=== PATIENT | male | born 1940 | race African-American/Black ===

== ENCOUNTER 2017-06-27 09:47 | Outpatient (CLI) | payer MEDICARE, OTHER | END 2017-06-27 23:59 | disposition home or self-care (01) | LOC: CARD 09:47 | PROVIDERS: ATTEND Internal Medicine Cardiovascular Disease | DX: R42 Dizziness and giddiness (principal) | CPT/HCPCS: 93880-TC ==

== ENCOUNTER 2017-07-10 09:35 | Outpatient (CLI) | payer MEDICARE, OTHER ==
[2017-07-10] MEDS ORDERED: IV NS 0.9% 250 ML IV ONE (09:56)
[2017-07-10] MEDS ORDERED: IOHEXOL-350 100 ML VIAL IV ONE (09:56)
[2017-07-10] MEDS ORDERED: CT SWABBABLE VALVE TRANS SET 1 EA INFUS.SET MC ONE (09:56)
[2017-07-10 10:27] LABS: CALCIUM, SERUM 8.5 mg/dL (8.5-10.1); CARBON DIOXIDE 29 mmol/L (21-32); CHLORIDE 106 mmol/L (98-107); GLUCOSE 97 mg/dL (74-106); POTASSIUM 4.1 mmol/L (3.5-5.1); SODIUM SERUM 143 mmol/L (136-145); UREA NITROGEN, BLOOD 22 mg/dL (7-18)
== END 2017-07-10 23:59 | disposition home or self-care (01) ==
LOC: CT 09:35
PROVIDERS: ATTEND Internal Medicine Cardiovascular Disease
DX: I65.21 Occlusion and stenosis of right carotid artery (principal)
CPT/HCPCS: 36415; 70498; 80048; J7050; Q9967

== ENCOUNTER 2019-05-30 10:59 | Inpatient (IN) | payer MEDICARE, OTHER ==
[~2019-05-30] VITALS: Ht 167.6 cm; Wt 89.8 kg
--- NOTE | 2019-05-30 11:13 | NUR ---
CALLED NURSING SUP FOR TELE BED.
--- NOTE | 2019-05-30 11:20 | NUR ---
BIB Family From MD office "[facility] up and down xcouple days. "+SOB, PT AWAKE, ALERT, PT ON MONITOR, MD AT BEDSIDE FOR EVAL
[2019-05-30] MEDS ORDERED: DILTIAZEM HCL 25 MG IV ONE (11:26)
--- NOTE | 2019-05-30 11:28 | NUR ---
PAGED [facility].
[2019-05-30 11:30] LABS: BASOPHILS % (AUTO) 0.1 % (0.0-2.0); EOSINOPHILS % (AUTO) 0.1 % (0.0-6.0); HEMATOCRIT 37 % (39-51); HEMOGLOBIN 12.3 g/dL (13.5-17.5); LYMPHOCYTES # (AUTO) 0.6 /CMM (0.8-4.8); MEAN CORPUSCULAR HGB CONC 33 g/dl (31.0-36.0); MEAN CORPUSCULAR VOLUME 94 fL (80-96); MONOCYTES # (AUTO) 0.4 /CMM (0.1-1.30); MONOCYTES % (AUTO) 5.4 % (2.0-12.0); NEUTROPHILS # (AUTO) 6.2 /CMM (1.8-8.9); NEUTROPHILS % (AUTO) 86.4 % (43.0-81.0); PLATELET COUNT (AUTO) 145 /CMM (150-450); RED BLOOD CELL COUNT(AUTO) 3.97 MIL/uL (4.5-6.0); WHITE BLOOD COUNT (AUTO) 7.2 K/uL (4.3-11.0)
[2019-05-30] MEDS ORDERED: DILTIAZEM HCL 25 MG IV IV ONE (11:30)
[2019-05-30 11:37] LABS: CALCIUM, SERUM 8.8 mg/dL (8.5-10.1); CARBON DIOXIDE 28 mmol/L (21-32); CHLORIDE 107 mmol/L (98-107); CREATININE 1.2 mg/dL (0.6-1.3); GLUCOSE 118 mg/dL (74-106); POTASSIUM 4.4 mmol/L (3.5-5.1); SODIUM SERUM 143 mmol/L (136-145); UREA NITROGEN, BLOOD 16 mg/dL (7-18)
[2019-05-30 11:50] LABS: ALANINE AMINOTRANSFERASE 48 U/L (12-78); ALBUMIN 3.4 g/dL (3.4-5.0); ALKALINE PHOSPHATASE 84 U/L (46-116); ASPARTATE AMINOTRANSFERASE 27 U/L (15-37); B-TYPE NATRIURETIC PEPTIDE 2247 PG/ML (0-125); BILIRUBIN,DIRECT 0.6 mg/dL (0.0-0.2); BILIRUBIN,TOTAL 3.1 mg/dL (0.2-1.0); TOTAL PROTEIN, SERUM 7.2 g/dL (6.4-8.2)
[2019-05-30] MEDS ORDERED: DOXA4TAB3 PO (11:59)
[2019-05-30] MEDS ORDERED: DUTA0.5C PO (11:59)
[2019-05-30] MEDS ORDERED: OMEG1CAP55 PO (11:59)
[2019-05-30] MEDS ORDERED: DIGO125T20 PO (11:59)
[2019-05-30] MEDS ORDERED: LOSA25TA27 PO (11:59)
[2019-05-30] MEDS ORDERED: ROSU10TA2 PO (11:59)
[2019-05-30] MEDS ORDERED: ASPI-1169 PO (11:59)
--- NOTE | 2019-05-30 12:14 | NUR ---
NURSING SUP GAVE TELE BED 316-2.
--- NOTE | 2019-05-30 12:24 | NUR ---
report given to sascha faulkner for chris pt will be transported to 3rd floor
--- NOTE | 2019-05-30 12:29 | NUR ---
SECOND ATTEMPT PAGE FOR ANDONIAN.
--- NOTE | 2019-05-30 12:45 | NUR ---
MOTORCYCLE DELIVERY DRIVER NOTES PATIENT ARRIVED FROM ER VIA GURNEY. PATIENT ALERT, ORIENTED X3 DAUGHTER AT BEDSIDE. PATIENT DENIES ANY CHEST PAIN OR SOB. PATIENT PLACED ON TELE MONITORING READING A-FIB 101. PATIENT SEEN BY DR. RAVI AT THE EMERGENCE ROOM. PATIENT ORIENTED TO ROOM. CALL LIGHT WITHIN REACH. DR. ROSE MADE AWARE OF PATIENTS ARRIVAL. BED IN LOW LOCKED POSITION. WILL CONTINUE TO MONITOR.
--- NOTE | 2019-05-30 13:03 | NUR ---
pt transported to 3rd floor
[2019-05-30] MEDS ORDERED: HYDROCODONE/APAP 5/325MG 1 EACH TABLET PO PRN (14:30)
[2019-05-30] MEDS ORDERED: ZOLPIDEM TARTRATE 5 MG TABLET PO PRN (14:30)
[2019-05-30] MEDS ORDERED: MAG HYDROX/AL HYDROX/SIMETH 30 ML UDC PO PRN (14:30)
[2019-05-30] MEDS ORDERED: FUROSEMIDE 20 MG/2 ML VIAL IV ONE (14:30)
[2019-05-30] MEDS ORDERED: ONDANSETRON HCL/PF 4 MG/2 ML VIAL IVP PRN (14:30)
[2019-05-30] MEDS ORDERED: ACETAMINOPHEN 325 MG TABLET PO PRN (14:30)
[2019-05-30] MEDS ORDERED: MAGNESIUM HYDROXIDE 30 ML UDC PO PRN (14:30)
[2019-05-30] MEDS ORDERED: Z GUARD REMEDY 2 OZ OINT TP PRN (14:30)
[2019-05-30 16:00] VITALS: BP 126/77
[2019-05-30] MEDS ORDERED: Medication Not On Formulary EA (Omega-3 Acid Ethyl Esters (Lovaza) 1 GM) PO SCH (17:00)
[2019-05-30] MEDS ORDERED: DIGOXIN INJ 0.5 MG/2 ML AMPUL IV ONE (18:00)
--- NOTE | 2019-05-30 18:30 | NUR ---
Tele/RN Closing Note Patient in bed comfortably, no appears chest pain or any discomfort. No s/s of respiratory distress, kept lower bed position with elevated HOB. Skin is warm to touch, clean/dry, intact IV site. Call light within reach, will endorse assistant shift supervisor.
--- NOTE | 2019-05-30 19:05 | NUR ---
CLIENT CARE COORDINATOR NOTE RECEIVED PT IN STABLE CONDITION A/O X4, NOTED WITH GUEST AT BEDSIDE. NO SIGNS OF SOB OR DISTRESS, NO C/O PAIN OR N/V. TELE MONITOR: LESTER 96. IV IN RAC #[address] S/L. ALL CURRENT NEEDS ATTENDED TO. BED LOW, LOCKED, UPPER RAILS UP, AND CALL LIGHT WITHIN REACH, WILL CONT. TO MONITOR.
[2019-05-30 20:00] VITALS: BP 127/77
[2019-05-30] MEDS: ATORVASTATIN 10 MG TABLET PO SCH (21:09)
[2019-05-31] VITALS: BP 146/76
[2019-05-31 04:00] VITALS: BP 134/71
--- NOTE | 2019-05-31 06:15 | NUR ---
HEATING AND REFRIGERATION INSPECTOR NOTE PT REMAINS IN STABLE CONDITION A/O X4, RESTING IN BED. NO SIGNS OF SOB OR DISTRESS, NO C/O PAIN OR N/V. TELE MONITOR: LESTER 75. IV IN RAC #[address] S/L. ALL CURRENT NEEDS ATTENDED TO. BED LOW, LOCKED, UPPER RAILS UP, AND CALL LIGHT WITHIN REACH, WILL CONT. TO MONITOR AND ENDORSE TO NEXT SHIFT FOR ALEXANDRA.
[2019-05-31 07:46] LABS: BASOPHILS % (AUTO) 0.1 % (0.0-2.0); EOSINOPHILS % (AUTO) 0.8 % (0.0-6.0); HEMATOCRIT 34 % (39-51); HEMOGLOBIN 11.6 g/dL (13.5-17.5); LYMPHOCYTES # (AUTO) 0.9 /CMM (0.8-4.8); MEAN CORPUSCULAR HGB CONC 34 g/dl (31.0-36.0); MEAN CORPUSCULAR VOLUME 92 fL (80-96); MONOCYTES # (AUTO) 0.5 /CMM (0.1-1.30); MONOCYTES % (AUTO) 7.5 % (2.0-12.0); NEUTROPHILS # (AUTO) 5.2 /CMM (1.8-8.9); NEUTROPHILS % (AUTO) 77.6 % (43.0-81.0); PLATELET COUNT (AUTO) 143 /CMM (150-450); RED BLOOD CELL COUNT(AUTO) 3.68 MIL/uL (4.5-6.0); WHITE BLOOD COUNT (AUTO) 6.7 K/uL (4.3-11.0)
[2019-05-31 08:00] VITALS: BP 128/78
[2019-05-31 08:09] LABS: CALCIUM, SERUM 8.4 mg/dL (8.5-10.1); CREATININE 1.1 mg/dL (0.6-1.3); MAGNESIUM 1.9 mg/dL (1.8-2.4); PHOSPHORUS 3.1 mg/dL (2.5-4.9); POTASSIUM 3.8 mmol/L (3.5-5.1)
[2019-05-31] MEDS ORDERED: Medication Not On Formulary EA (Rosuvastatin Calcium (Crestor) 10 MG) PO SCH (09:00)
[2019-05-31] MEDS: DUTASTERIDE (0.5 MG) 0.5 MG CAPSULE PO SCH (09:00)
[2019-05-31 09:01] VITALS: BP 128/78
[2019-05-31] MEDS: LOSARTAN POTASSIUM 25 MG TABLET PO SCH (09:04)
[2019-05-31] MEDS: ASPIRIN 81 MG TAB.CHEW PO SCH (09:04)
[2019-05-31] MEDS: DOXAZOSIN MESYLATE (4 MG) 4 MG TABLET PO SCH (09:05)
[2019-05-31] MEDS ORDERED: DIGOXIN INJ 0.5 MG/2 ML AMPUL IV ONE ×2 (10:00→16:00)
[2019-05-31] MEDS ORDERED: DIGOXIN 0.125 MG TABLET PO ONE (13:00)
[2019-05-31] MEDS: DIGOXIN 0.125 MG TABLET PO SCH (14:20)
[2019-05-31 16:00] VITALS: BP 143/67
--- NOTE | 2019-05-31 18:58 | NUR ---
Patient in bed resting comfortably, no discomfort or distress noted. No chest pain, no dizziness. Patient had episodes of HR 135-151. Digoxin IV administrated as ordered. Currently A -fib with HR 82. Kept lower bed position with elevated HOB. Skin is warm to touch, clean/dry, intact IV site. Call light within reach, will endorse to shift foreman.
--- NOTE | 2019-05-31 19:35 | NUR ---
RN OPENING NOTES RECEIVED PATIENT FROM ARTURO JASSO. PATIENT AWAKE IN BED, A/OX 4. PATIENT ABLE TO VERBALIZE NEEDS. NO SIGNS OF RESPIRATORY DISTRESS OR SOB, NO COMPLAINTS OF ANY PAIN, N/V. TELE MONITOR AFIB 86 AT THIS TIME. IV RAC #[address] S/L. SAFETY PRECAUTIONS IMPLEMENTED; CALL LIGHT WITHIN REACH, BED LOW, BED LOCKED, BILATERAL UPPER SIDE RAILS UP. WILL CONTINUE TO MONITOR.
[2019-05-31 20:00] VITALS: BP 126/76
[2019-05-31] MEDS: ATORVASTATIN 10 MG TABLET PO SCH (22:22)
[2019-06-01] VITALS: BP 120/73
[2019-06-01 04:00] VITALS: BP 137/66
--- NOTE | 2019-06-01 06:43 | NUR ---
RN CLOSING NOTES PATIENT IS CURRENTLY ASLEEP, EASILY AWAKENED. NO SIGNS OF RESPIRATORY DISTRESS, NO SHORTNESS OF BREATH NOTED, RESPIRATIONS EVEN AND UNLABORED. TELE READING AFIB CONTROLLED. NO SIGNS OF FACIAL GRIMACING INDICATING PAIN OR DISCOMFORT AT THIS TIME. IV SITE IN PLACE S/L. PATIENT KEPT CLEAN, DRY AND COMFORTABLE. ALL NEEDS MET ON SHIFT. ALL DUE MEDS GIVEN ORDERED WITH NO ADVERSE EFFECTS. SAFETY PRECAUTIONS IMPLEMENTED; CALL LIGHT WITHIN REACH, BED LOW, BED LOCKED, BILATERAL UPPER SIDE RAILS UP. WILL ENDORSE TO DAY SHIFT NURSE FOR CONTINUITY OF CARE.
[2019-06-01 08:00] VITALS: BP 156/74
[2019-06-01 08:10] LABS: BASOPHILS % (AUTO) 0.1 % (0.0-2.0); EOSINOPHILS % (AUTO) 1.2 % (0.0-6.0); HEMATOCRIT 36 % (39-51); HEMOGLOBIN 12.1 g/dL (13.5-17.5); LYMPHOCYTES % (AUTO) 16.3 % (20.0-44.0); MEAN CORPUSCULAR HGB CONC 34 g/dl (31.0-36.0); MEAN CORPUSCULAR VOLUME 92 fL (80-96); MONOCYTES # (AUTO) 0.5 /CMM (0.1-1.30); MONOCYTES % (AUTO) 7.8 % (2.0-12.0); NEUTROPHILS # (AUTO) 4.7 /CMM (1.8-8.9); NEUTROPHILS % (AUTO) 74.6 % (43.0-81.0); PLATELET COUNT (AUTO) 159 /CMM (150-450); RED BLOOD CELL COUNT(AUTO) 3.91 MIL/uL (4.5-6.0); WHITE BLOOD COUNT (AUTO) 6.3 K/uL (4.3-11.0)
[2019-06-01 08:14] LABS: CALCIUM, SERUM 8.5 mg/dL (8.5-10.1); POTASSIUM 3.9 mmol/L (3.5-5.1)
[2019-06-01 08:21] LABS: DIGOXIN 1.2 ng/mL (0.90-2.00)
[2019-06-01] MEDS: LOSARTAN POTASSIUM 25 MG TABLET PO SCH (09:16)
[2019-06-01] MEDS: ASPIRIN 81 MG TAB.CHEW PO SCH (09:17)
[2019-06-01] MEDS: DOXAZOSIN MESYLATE (4 MG) 4 MG TABLET PO SCH (09:17)
[2019-06-01] MEDS: DUTASTERIDE (0.5 MG) 0.5 MG CAPSULE PO SCH (09:20)
[2019-06-01] MEDS ORDERED: DIGOXIN INJ 0.5 MG/2 ML AMPUL IV ONE (10:00)
[2019-06-01] MEDS: METOPROLOL TARTRATE 25 MG TABLET PO SCH ×2 (10:06→17:40)
[2019-06-01] MEDS: DIGOXIN 0.125 MG TABLET PO SCH (12:46)
[2019-06-01 16:00] VITALS: BP 147/88
--- NOTE | 2019-06-01 18:55 | NUR ---
Patient in bed resting comfortably, no discomfort or distress noted. No chest pain, no dizziness. Digoxin IV administrated as ordered. Currently A -fib with HR 88 asymptomatic. Kept lower bed position with elevated HOB. Intact IV site and flushing well. Call light within reach, will endorse to awake overnight monitor for ALEXANDRA.
--- NOTE | 2019-06-01 19:20 | NUR ---
TELE/RN OPENING NOTES: RECEIVED PATIENT AWAKE IN BED, A/OX 4. PATIENT ABLE TO VERBALIZE NEEDS. NO SOB NOTED, NO SIGNS OF RESPIRATORY DISTRESS, NO COMPLAINTS OF ANY PAIN, N/V. TELE MONITOR A-FIB WITH HR ON THE 80S AT THIS TIME. IV RAC #[address] S/L. SAFETY PRECAUTIONS IMPLEMENTED; CALL LIGHT WITHIN REACH, BED LOW, BED LOCKED, BILATERAL UPPER SIDE RAILS UP. WILL CONTINUE MONITORING PT ACCORDINGLY.
[2019-06-01 20:00] VITALS: BP 146/73
[2019-06-01] MEDS: ATORVASTATIN 10 MG TABLET PO SCH (22:00)
[2019-06-02] VITALS: BP 141/66
[2019-06-02] MEDS: METOPROLOL TARTRATE 25 MG TABLET PO SCH ×5 (00:10→23:49)
[2019-06-02 04:00] VITALS: BP 140/65
--- NOTE | 2019-06-02 06:32 | NUR ---
TELE/RN CLOSING NOTES: PATIENT RESTING IN BED, REMAINS A/OX 4. ABLE TO VERBALIZE NEEDS. NO SOB NOTED, NO SIGNS OF RESPIRATORY DISTRESS, NO COMPLAINTS OF ANY PAIN, OR DISCOMFORT AT THIS TIME. TELE MONITORING FOR A-FIB WITH HR ON THE 80S AT THIS TIME. IV RAC #[address] S/L. ALL DUE MEDICATIONS GIVEN ORDERED, ALL NEEDS MET AND PROVIDED AT THIS TIME. KEPT WARM AND COMFORTABLE THROUGHOUT THE SHIFT. SAFETY MEASURES KEPT IN PLACE, BED IN LOW AND LOCKED POSITION WITH SIDE RAILS UP X2. CALL LIGHT WITH IN EASY REACH. WILL ENDORSE TO DAY SHIFT NURSE FOR ALEXANDRA.
[2019-06-02 07:11] LABS: BASOPHILS % (AUTO) 0.1 % (0.0-2.0); EOSINOPHILS % (AUTO) 1.2 % (0.0-6.0); HEMATOCRIT 37 % (39-51); HEMOGLOBIN 12.5 g/dL (13.5-17.5); LYMPHOCYTES # (AUTO) 1.1 /CMM (0.8-4.8); LYMPHOCYTES % (AUTO) 15.6 % (20.0-44.0); MEAN CORPUSCULAR HGB CONC 34 g/dl (31.0-36.0); MEAN CORPUSCULAR VOLUME 93 fL (80-96); MONOCYTES # (AUTO) 0.6 /CMM (0.1-1.30); NEUTROPHILS # (AUTO) 5.2 /CMM (1.8-8.9); NEUTROPHILS % (AUTO) 75.1 % (43.0-81.0); PLATELET COUNT (AUTO) 176 /CMM (150-450); RED BLOOD CELL COUNT(AUTO) 4.01 MIL/uL (4.5-6.0); WHITE BLOOD COUNT (AUTO) 6.9 K/uL (4.3-11.0)
--- NOTE | 2019-06-02 07:57 | NUR ---
HYDRO STATION SUPERVISOR NOTES PATIENT RECEIVED RESTING INSIDE ROOM. SLEEPING. EASILY AROUSABLE THROUGH VERBAL AND TACTILE STIMULI. BREATHING EVEN AND UNLABORED. NO ACUTE DISTRESS. DENIES ANY PAIN OR DISCOMFORT. DONOR SERVICES TECHNICIAN IN PLACE, AFIB CONTROLLED 88. SAFETY PRECAUTIONS IN PLACE. WILL CONTINUE TO MONITOR. BED LOCKED AND IN LOW POSITION. BILATERAL UPPER SIDE RAILS UP AND LOCKED. CALL LIGHT WITHIN EASY REACH
[2019-06-02 08:00] VITALS: BP 136/63
[2019-06-02] MEDS: DOXAZOSIN MESYLATE (4 MG) 4 MG TABLET PO SCH (09:00)
[2019-06-02] MEDS: LOSARTAN POTASSIUM 25 MG TABLET PO SCH (09:07)
[2019-06-02] MEDS: ASPIRIN 81 MG TAB.CHEW PO SCH (09:07)
[2019-06-02] MEDS: DUTASTERIDE (0.5 MG) 0.5 MG CAPSULE PO SCH (09:07)
[2019-06-02] MEDS: DIGOXIN 0.125 MG TABLET PO SCH (12:55)
[2019-06-02 16:00] VITALS: BP 148/84
--- NOTE | 2019-06-02 17:00 | NUR ---
GAME TRAPPER NOTES PATIENT AND DAUGHTER AT BEDSIDE SEEN AND EXAMINED BY DR RAVI. DAUGHTER AND PATIENT AGREED TO HAVE TRANSESOPHAGEAL ECHOCARDIOGRAM. VERIFIED INFORMED CONSENT OBTAINED BY MD AND WITNESSED BY LICENSED STAFF. CHARGE NURSE AND NURSING WEATHER STRIP MECHANIC AWARE TO ACCOMMODATE SCHEDULE. WILL CONTINUE TO MONITOR
--- NOTE | 2019-06-02 18:58 | NUR ---
SUPERINTENDENT PLANT PROTECTION NOTES PATIENT RESTING INSIDE ROOM. NO CHANGES IN LOC NOTED. NO ACUTE DISTRESS. DENIES ANY PAIN OR DISCOMFORT. PATIENT KEPT CLEAN, DRY AND COMFORTABLE. CONSTRUCTION TECH IN PLACE, AFIB 77 CONTROLLED. AWARE OF PROCEDURE TOMORROW AM, AWARE OF BEING ON NPO STATUS AFTER MIDNIGHT. WILL ENDORSE TO INCOMING SHIFT FOR ALEXANDRA. BED LOCKED AND IN LOW POSITION. SIDE RAILS UP X 3. CALL LIGHT WITHIN EASY REACH
--- NOTE | 2019-06-02 19:30 | NUR ---
BEAUTY SHOP MANAGER OPENING NOTES RECEIVED PATIENT IN BED. A/OX4. TOLERATING ROOM AIR. RESPIRATIONS ARE EVEN AND UNLABORED. NO S/S SOB NOTED. EXTERNAL TELE MONITOR READS AFIB HR 80. IN NO APPARENT DISTRESS. IV ACCESS IN RAC#18 PATENT AND SALINE LOCKED. BED IS LOW AND LOCKED, SIDE RIALS UP X2, SEMI FOWLERS. CALL LIGHT WITHIN REACH. WILL CONTINUE TO MONITOR.
[2019-06-02 20:00] VITALS: BP 138/83
[2019-06-02] MEDS: ATORVASTATIN 10 MG TABLET PO SCH ×3 (21:32→21:49)
--- NOTE | 2019-06-02 21:36 | NUR ---
APPLICATION COORDINATOR NOTE DID NOT ADMINISTERED LIPITOR 20MG D/T PATIENT REFUSED. HE IS AWARE OF RISK AND BENEFITS. ACKNOWLEDGES THAT THIS PHARMACY DOES NOT CARRY HIS ORIGINAL MEDICATION AND DOES NOT WANT THIS CONVERSION. WILL CONTINUE TO MONITOR.
--- NOTE | 2019-06-02 23:57 | NUR ---
MARKETING COMMUNICATION MANAGER NOTE PATIENT NPO STATUS.
[2019-06-03] VITALS (10 sets, daily range): BP systolic 129–154; BP diastolic 59–86
[2019-06-03] MEDS: METOPROLOL TARTRATE 25 MG TABLET PO SCH (05:44)
--- NOTE | 2019-06-03 06:54 | NUR ---
HOSPITALITY AMBASSADOR NOTE TRANSFERRED PATIENT IN BED TO ICU ROOM 252 FOR GERMAINE PROCEDURE THIS MORNING. BELONGINGS LEFT AT BEDSIDE IN 316-2. GLASSES ARE ONLY BELONGING IN ICU.
--- NOTE | 2019-06-03 07:10 | NUR ---
RN INITIAL NOTES RECEIVED PT AWAKE, A/OX4. ON 02 VIA NC AT 3LPM. NO RESPIRATORY DISTRESS NOTED. NO SOB NOTED. DENIES ANY PAIN. CONNECTED TO MONITOR, A.FIB AT 80S. IV LINE IN PLACE. SKIN INTACT. PT FOR GERMAINE UNDER DR SWANSON. PT PREPPED FOR PROCEDURE. WILL CLOSELY MONITOR.
[2019-06-03] MEDS ORDERED: ANESTHESIA TRAY IN PYXIS 1 EA TRAY MC ONE (07:18)
[2019-06-03] MEDS ORDERED: APIXABAN 5 MG TABLET PO SCH (09:00)
[2019-06-03] MEDS ORDERED: METOPROLOL SUCCINATE 25 MG TAB.SR.24H PO SCH (09:00)
[2019-06-03] MEDS: LOSARTAN POTASSIUM 25 MG TABLET PO SCH (09:20)
[2019-06-03] MEDS: ASPIRIN 81 MG TAB.CHEW PO SCH (09:20)
--- NOTE | 2019-06-03 09:30 | NUR ---
RN NOTES 0900 UNABLE TO DO GERMAINE. DR SWANSON EXPERIENCED DIFFICULTY ON GERMAINE MACHINE/PROBE. DID NOT PROCEED WITH THE PROCEDURE. DR RAVI EXPLAINED AND UPDATED FAMILY WITH PLAN OF CARE. 0930 PT AMBULATE WITH PORTABLE PULSE OXIMETER. HR ON 80S, 02 SAT ABOVE 94%. NO RESPIRATORY DISTRESS NOTED. NO SOB NOTED. DENIES ANY PAIN. PER DR RAVI, CLEARED TO GO BACK TO TELE. WILL MONITOR
--- NOTE | 2019-06-03 10:30 | NUR ---
Transfer Note Patient transfer from ICU received report, Pt denies pain or any discomfort, stable v/s:146/69.7p-79. r-79, t-97.7, [id number] in RA, Skin is warm to touch, IV site intact. Respiratory even and unlabored, no SOB observed.
--- NOTE | 2019-06-03 10:35 | NUR ---
RN NOTES PT TRANSFERRED TO ROOM 316-2. PT A/OX4. ON ROOM AIR. DENIES ANY PAIN. NO RESPIRATORY DISTRESS NOTED. IN STABLE CONDITION. ARTURO GUZMAN TOOK OVER PT'S CARE.
[2019-06-03] MEDS: DUTASTERIDE (0.5 MG) 0.5 MG CAPSULE PO SCH (11:05)
[2019-06-03] MEDS: DIGOXIN 0.125 MG TABLET PO SCH (13:00)
[2019-06-03] MEDS ORDERED: DOXAZOSIN MESYLATE (4 MG) 4 MG TABLET PO SCH (22:00)
== END 2019-06-03 15:35 | disposition home or self-care (01) | DRG 310 ==
LOC: ER 10:59 → TELE 12:36 → ICU 06-03 06:41 → MED 06-03 10:53
PROVIDERS: ADMIT Family Medicine
DX: I48.91 Unspecified atrial fibrillation (principal); D63.8 Anemia in other chronic diseases classified elsewhere; I25.10 Atherosclerotic heart disease of native coronary artery without angina pectoris; E78.5 Hyperlipidemia, unspecified; I10 Essential (primary) hypertension; M19.90 Unspecified osteoarthritis, unspecified site; G47.33 Obstructive sleep apnea (adult) (pediatric); R73.9 Hyperglycemia, unspecified; R74.8 Abnormal levels of other serum enzymes; Z95.2 Presence of prosthetic heart valve; D69.6 Thrombocytopenia, unspecified; D64.9 Anemia, unspecified; R78.89 Finding of other specified substances, not normally found in blood; Z53.8 Procedure and treatment not carried out for other reasons
CPT/HCPCS: 36415; 71045-TC; 80048-TC; 80061-TC; 80076-TC; 80162-TC; 83735-TC; 83880; 84100-TC; 84439-TC; 84443-TC; 84484-TC; 85025-TC; 85730-TC; 87081-TC; 93307-TC; G0378; J1160; J1940; J3490; J7050

== ENCOUNTER 2024-06-28 15:31 | Emergency (ER) | payer MEDICARE, OTHER ==
[~2024-06-28] VITALS: Ht 160 cm; Wt 83.9 kg
[~2024-06-28 15:31] MED LIST: ASPI-1169 PO; DIGO125T20 PO; DOXA4TAB3 PO; DUTA0.5C PO; LOSA25TA27 PO; OMEG1CAP55 PO; ROSU10TA2 PO
[2024-06-28] MEDS ORDERED: LIDOCAINE 2% JEL UROJET 10 ML MM ONE (16:20)
[2024-06-28 17:00] LABS: BASOPHILS % (AUTO) 0.2 % (0.0-2.0); EOSINOPHILS # (AUTO) 0.1 K/uL (0.0-0.7); EOSINOPHILS % (AUTO) 0.7 % (0.0-6.0); HEMATOCRIT 34 % (39-51); HEMOGLOBIN 11.3 g/dL (13.5-17.5); LYMPHOCYTES # (AUTO) 0.6 K/uL (0.8-4.8); LYMPHOCYTES % (AUTO) 8.8 % (20.0-44.0); MEAN CORPUSCULAR HEMOGLOBIN 33 PG (26.0-33.0); MEAN CORPUSCULAR HGB CONC 34 g/dl (31.0-36.0); MEAN CORPUSCULAR VOLUME 97 fL (80-96); MONOCYTES # (AUTO) 0.8 K/uL (0.1-1.30); MONOCYTES % (AUTO) 10.3 % (2.0-12.0); NEUTROPHILS # (AUTO) 5.9 K/uL (1.8-8.9); PLATELET COUNT (AUTO) 109 K/uL (150-450); RED BLOOD CELL COUNT(AUTO) 3.48 MIL/uL (4.5-6.0); WHITE BLOOD COUNT (AUTO) 7.4 K/uL (4.3-11.0)
[2024-06-28] MEDS: LIDOCAINE 2% JEL UROJET 10 ML MM ONE (17:04)
[2024-06-28 17:10] LABS: CALCIUM, SERUM 9.2 mg/dL (8.5-10.1); CREATININE 2.1 mg/dL (0.6-1.3); POTASSIUM 4.9 mmol/L (3.5-5.1)
[2024-06-28 17:34] LABS: APPEARANCE,URINE CLOUDY (CLEAR); BILIRUBIN,URINE 1+ (NEGATIVE); BLOOD, URINE 3+ Ery/uL (NEGATIVE); COLOR,URINE YELLOW (YELLOW); KETONES,URINE TRACE mg/dL (NEGATIVE); LEUKOCYTE ESTERASE ,URINE TRACE (NEGATIVE); NITRITE, URINE POSITIVE (NEGATIVE); PH,URINE 5.5 (5.0-8.0); PROTEIN,URINE 2+ mg/dl (NEGATIVE); UGLUCOSE 3+ mg/dL (NEGATIVE)
[2024-06-28 17:43] LABS: INR 1.21 (0.91-1.10); PROTHROMBIN TIME 12.7 SECS (9.2-11.1)
[2024-06-28 18:27] LABS: ADD URINE CULTURE YES; BACTERIA,URINE 1+ /HPF (None Seen); RBC,URINE 51-80 /HPF (0-2)
[2024-06-28] MEDS ORDERED: CEFP200T14 PO (19:00)
[2024-06-28] MEDS: CEFTRIAXONE 1GM BAG (ER ONLY) 1 GM/50 ML PIGGYBACK IV ONE (19:05)
[2024-06-28] MEDS: IV NS 0.9% 1,000 ML BAG IV ONE (19:05)
[2024-06-28] MEDS ORDERED: LIDO10JE TP (19:29)
[2024-06-28 19:33] VITALS: BP 122/71; TEMP 98.7; O2SAT 96
== END 2024-06-28 19:33 | disposition home or self-care (01) ==
LOC: ER 15:37
DX: T83.098A Other mechanical complication of other urinary catheter, initial encounter (principal); N39.0 Urinary tract infection, site not specified; I10 Essential (primary) hypertension; I48.91 Unspecified atrial fibrillation; N21.0 Calculus in bladder; Z79.82 Long term (current) use of aspirin; Z79.899 Other long term (current) drug therapy; X58.XXXA Exposure to other specified factors, initial encounter; Y93.89 Activity, other specified; Y92.89 Other specified places as the place of occurrence of the external cause; Y99.8 Other external cause status
CPT/HCPCS: 99284; 51702; 85025; 80048; 87086; 85610; 81001; 36415; J3490